=== PATIENT | male | born 1945 | race Caucasian/White ===

== ENCOUNTER → 2017-04-25 | Outpatient (CLI) | payer MEDICARE ==
[~2017-04-25] MED LIST: ALDACTONE25 MG PO; CIPRO500 MG PO; LACTULOSE20 GM/30 M PO; PRILOSEC OTC20 MG PO; TOPROL XL50 MG PO; VITAMIN C 500500 MG PO
== END ==
LOC: KOH-I 16:12
DX: M54.5 Low back pain (principal); M47.896 Other spondylosis, lumbar region; M43.9 Deforming dorsopathy, unspecified
CPT/HCPCS: 72110

== ENCOUNTER → 2017-05-07 | Outpatient (CLI) | payer MEDICARE | LOC: EMI 05-04 13:45 | DX: S22.000A Wedge compression fracture of unspecified thoracic vertebra, initial encounter for closed fracture (principal); S12.9XXA Fracture of neck, unspecified, initial encounter; M25.70 Osteophyte, unspecified joint; M99.71 Connective tissue and disc stenosis of intervertebral foramina of cervical region; M48.02 Spinal stenosis, cervical region; M99.72 Connective tissue and disc stenosis of intervertebral foramina of thoracic region | CPT/HCPCS: 72141; 72146 ==

== ENCOUNTER → 2017-05-15 | Outpatient (CLI) | payer MEDICARE | LOC: EMI 12:55 | DX: M48.56XA Collapsed vertebra, not elsewhere classified, lumbar region, initial encounter for fracture (principal); M54.5 Low back pain | CPT/HCPCS: 72148 ==

== ENCOUNTER 2017-05-16 15:49 | Inpatient (IN) | payer MEDICARE ==
[~2017-05-16] VITALS: Ht 172.7 cm; Wt 95.8 kg
[~2017-05-16 15:49] MED LIST changes: -VITAMIN C 500500 MG PO
[2017-05-16 17:16] LABS: RED BLOOD COUNT 2.93 M/UL (4.20-5.50); WHITE BLOOD COUNT 13.9 K/UL (4.5-11.0)
[2017-05-16] MEDS ORDERED: VITAMIN C 500500 MG PO (17:40)
[2017-05-17 05:57] LABS: HEMOGLOBIN 9.9 gm/dl (14.0-17.5); RED BLOOD COUNT 2.66 M/UL (4.20-5.50); WHITE BLOOD COUNT 11.8 K/UL (4.5-11.0)
[2017-05-17 06:12] LABS: BUN/CREATININE RATIO 36 (0-10)
[2017-05-17 12:38] LABS: HEMOGLOBIN 11.1 gm/dl (14.0-17.5); WHITE BLOOD COUNT 11.6 K/UL (4.5-11.0)
[2017-05-17 12:47] LABS: RED BLOOD COUNT 2.98 M/UL (4.20-5.50)
[2017-05-18 05:49] LABS: WHITE BLOOD COUNT 10.1 K/UL (4.5-11.0)
[2017-05-18 05:51] LABS: RED BLOOD COUNT 2.57 M/UL (4.20-5.50)
[2017-05-18 06:12] LABS: BUN/CREATININE RATIO 30 (0-10)
== END 2017-05-19 13:35 | disposition home or self-care (01) | DRG 982 ==
LOC: M/S 15:49
PROVIDERS: Orthopaedic Surgery; ADMIT Family Medicine
PROC: 0QU03JZ Supplement Lumbar Vertebra with Synthetic Substitute, Percutaneous Approach (ICD-10-PCS; 2017-05-17)
PROC: 0QS03ZZ Reposition Lumbar Vertebra, Percutaneous Approach (ICD-10-PCS; principal; 2017-05-17 16:30)
DX: G92 Toxic encephalopathy (principal); E87.1 Hypo-osmolality and hyponatremia; M48.56XA Collapsed vertebra, not elsewhere classified, lumbar region, initial encounter for fracture; T40.2X5A Adverse effect of other opioids, initial encounter; T39.8X5A Adverse effect of other nonopioid analgesics and antipyretics, not elsewhere classified, initial encounter; K74.60 Unspecified cirrhosis of liver; R19.7 Diarrhea, unspecified; I71.4 Abdominal aortic aneurysm, without rupture; K27.9 Peptic ulcer, site unspecified, unspecified as acute or chronic, without hemorrhage or perforation; R63.0 Anorexia; Z87.891 Personal history of nicotine dependence; Z87.311 Personal history of (healed) other pathological fracture; Z79.899 Other long term (current) drug therapy; Z68.32 Body mass index [BMI] 32.0-32.9, adult; Z90.49 Acquired absence of other specified parts of digestive tract; Z98.890 Other specified postprocedural states; Z80.1 Family history of malignant neoplasm of trachea, bronchus and lung; Z82.49 Family history of ischemic heart disease and other diseases of the circulatory system; Z83.79 Family history of other diseases of the digestive system
CPT/HCPCS: 36415; 71010; 74000; 80053; 81001; 82140; 85027; 85610; 86140; 86900; 86901; 93005; 97110; 97116; 97530; J0690; J2250; J2370; J3010; J7120; Q9962